=== PATIENT | male | born 1995 | race Caucasian/White ===

== ENCOUNTER 2017-01-02 10:41 | Emergency (ER) | payer OTHER ==
[~2017-01-02] VITALS: Ht 180.3 cm; Wt 65.8 kg
[~2017-01-02 10:41] MED LIST: BACTROBAN2% TP; CETIRIZINE10 MG PO; DAILY MULTI-VIT1 TA2 PO; DELTASONE10 MG PO; LAMOTRIGINE25 M1 PO; MOTRIN400 MG PO; MOTRIN800 MG PO; NKHM; SERTRALINE HYDR50 MG PO; TYLENOL325 M1 PO; ZITHROMAX250 MG PO
[2017-01-02] MEDS ORDERED: 'CLONIDINE0.1 MG PO (10:51)
[2017-01-02] MEDS ORDERED: SERTRALINE HYD100 MG PO (10:52)
[2017-01-02] MEDS ORDERED: ATARAX,VISTARIL10 MG PO (10:52)
[2017-01-02] MEDS ORDERED: LAMOTRIGINE100 MG PO (10:52)
[2017-01-03 22:05] LABS: GONOCOCCUS BY NAA Negative (Negative); TRICHOMONAS VAGINALIS BY NAA Negative (Negative)
== END 2017-01-02 12:20 | disposition home or self-care (01) ==
LOC: ED 10:41
PROVIDERS: Registered Nurse
DX: Z20.2 Contact with and (suspected) exposure to infections with a predominantly sexual mode of transmission (principal); R36.9 Urethral discharge, unspecified; Z79.899 Other long term (current) drug therapy

== ENCOUNTER 2017-03-18 23:08 | Emergency (ER) | payer SELFPAY ==
[~2017-03-18 23:08] MED LIST changes: +'CLONIDINE0.1 MG PO; +ATARAX,VISTARIL10 MG PO; +LAMOTRIGINE100 MG PO; +SERTRALINE HYD100 MG PO
[2017-03-18] MEDS ORDERED: ELIMITE 5%60 GM T (23:10)
== END 2017-03-19 00:35 | disposition home or self-care (01) ==
LOC: ED 23:08
DX: R21 Rash and other nonspecific skin eruption (principal); Z79.899 Other long term (current) drug therapy

== ENCOUNTER 2018-05-16 09:04 | Emergency (ER) | payer BC, OTHER ==
[~2018-05-16] VITALS: Ht 180.3 cm; Wt 68.0 kg
[~2018-05-16 09:04] MED LIST changes: +ELIMITE 5%60 GM T
[2018-05-16] MEDS ORDERED: NAPROSYN500 MG PO (09:15)
[2018-05-16] MEDS ORDERED: PENICILLIN VK500 MG PO (09:15)
[2018-05-16] MEDS ORDERED: Peridex 473 ML473 ML PO (09:15)
[2018-05-16] MEDS ORDERED: ZOFRAN4 MG PO (09:15)
== END 2018-05-16 09:34 | disposition home or self-care (01) ==
LOC: ED 09:04
DX: K02.9 Dental caries, unspecified (principal); K08.89 Other specified disorders of teeth and supporting structures; R03.0 Elevated blood-pressure reading, without diagnosis of hypertension; Z79.899 Other long term (current) drug therapy

== ENCOUNTER 2018-06-16 10:19 | Emergency (ER) | payer OTHER ==
[~2018-06-16] VITALS: Ht 180.3 cm; Wt 77.1 kg
[~2018-06-16 10:19] MED LIST changes: +NAPROSYN500 MG PO; +PENICILLIN VK500 MG PO; +Peridex 473 ML473 ML PO; +ZOFRAN4 MG PO
[2018-06-16] MEDS ORDERED: AMOXICILLIN500 M2 PO (12:20)
[2018-06-16] MEDS ORDERED: PREDNISONE20 M1 PO (12:20)
[2018-06-16] MEDS ORDERED: ROBITUSSIN DM 105 ML PO (12:20)
== END 2018-06-16 12:23 | disposition home or self-care (01) ==
LOC: ED 10:19
DX: J20.9 Acute bronchitis, unspecified (principal); F17.200 Nicotine dependence, unspecified, uncomplicated; Z79.899 Other long term (current) drug therapy

== ENCOUNTER 2021-06-04 23:31 | Emergency (ER) | payer BC ==
[~2021-06-04 23:31] MED LIST changes: +AMOXICILLIN500 M2 PO; +PREDNISONE20 M1 PO; +ROBITUSSIN DM 105 ML PO
== END 2021-06-04 23:51 | disposition left against medical advice (07) ==
LOC: ED 23:31
DX: S05.32XA Ocular laceration without prolapse or loss of intraocular tissue, left eye, initial encounter (principal); Z53.21 Procedure and treatment not carried out due to patient leaving prior to being seen by health care provider; X58.XXXA Exposure to other specified factors, initial encounter; Y93.89 Activity, other specified; Y92.89 Other specified places as the place of occurrence of the external cause; Y99.8 Other external cause status